=== PATIENT | male | born 1975 | race Caucasian/White ===

== ENCOUNTER → 2017-08-07 | Outpatient (CLI) | payer BC ==
[~2017-08-07] VITALS: Ht 180.3 cm; Wt 96.3 kg
[~2017-08-07] MED LIST: OXYC-106 PO; PRLSR20 PO; RANI150T85 PO
[2017-08-07 14:17] VITALS: BP 144/91; PULSE 92; BMI 30.0
[2017-08-07 14:24] VITALS: BP 144/91; PULSE 92; Ht 180.3 cm; Wt 96.3 kg
== END | disposition home or self-care (01) ==
LOC: C.NEUR 13:42
PROVIDERS: ATTEND Internal Medicine Pulmonary Disease
DX: G47.33 Obstructive sleep apnea (adult) (pediatric) (principal)

== ENCOUNTER → 2017-09-15 | Outpatient (CLI) | payer BC ==
[~2017-09-15] MED LIST changes: -OXYC-106 PO; +OXYC10TA80 PO
--- NOTE | 2017-09-19 18:16 | POLYSOMNOGRAPH REPORT ---
CLINICAL DATA: The patient is a 42-year-old male with a chief complaint of fatigue and decreased energy. He snores somewhat. He completed the [place] sleepiness scale and had a score of 10. On the evening of 09/15/2017, a home sleep apnea test was performed using the Headroom type 3 monitor. RECORDING RESULTS: The total recording time was 10 hours. The patient's estimated sleep time was 8.4 hours. RESPIRATORY DATA: The patient had a total of 54 respiratory events including 9 obstructive apneas, 2 central apneas, and 43 hypopneas. Hypopneas were scored according to the 4% desaturation rule. The GIOVANNI was 6.4. The maximum respiratory event was 41 seconds. These results reflect mild sleep apnea. OXIMETRY DATA: The mean saturation for the night was 89%. The minimum saturation was 81%. There was an estimated 186 minutes less than 89%. HEART RATE DATA: The cardiac rates had a minimum of 54 beats per minute. The mean heart rate was 75 beats per minute. SNORING DATA: Snoring was present throughout the test. IMPRESSION: Mild obstructive sleep apnea. RECOMMENDATIONS: 1. Considering the patient's symptoms, it would be advised that he be treated with nasal CPAP therapy. This could be accomplished by an in-lab titration study. Alternatively, he could be treated with auto CPAP. 2. It is suggested that the patient avoid sleeping in the supine position. 3. Weight loss is advised in light of the elevation of body mass index at 30.3 events per hour. 4. The patient should be advised of the appropriate principles of sleep hygiene including having a regular sleep-wake schedule and allowing 7.5 hours of sleep per night. RADHA
== END | disposition home or self-care (01) ==
LOC: C.NEUR 08:28
PROVIDERS: ATTEND Internal Medicine Pulmonary Disease
DX: G47.33 Obstructive sleep apnea (adult) (pediatric) (principal); Z79.899 Other long term (current) drug therapy